=== PATIENT | male | born 1960 | race Caucasian/White ===

== ENCOUNTER 2023-09-20 09:23 | Outpatient (CLI) | payer MEDICARE, SELFPAY ==
--- NOTE | ~2023-09-20 | XR_ITS ---
Clinical Indication: Chest pain PA and lateral views of the chest: Comparison: 12/15/2014 Findings: The lungs are clear, without evidence of focal consolidation or pleural effusion. Cardiome diastinal silhouette is within normal limits. Bones and soft tissues are unremarkable. Impression: Normal chest. Reviewed, dictated and finalized at location . Impression: Normal chest.
[2023-09-20 10:17] LABS: Basophils Absolute Auto 0.03 K/mm3 (0.00-0.10); Basophils Percent Auto 0.7 % (0.0-1.0); Eosinophils Absolute Auto 0.16 K/mm3 (0.02-0.50); Eosinophils Percent Auto 3.6 % (1.0-6.0); Hematocrit 43.8 % (37.0-46.0); Hemoglobin 15.1 g/dL (12.4-15.3); Immature Granulocyte Absolute 0.01 K/mm3 (0.00-0.00); Immature Granulocyte Percent A 0.2 % (0.0-0.0); Lymphocytes Absolute Auto 0.96 K/mm3 (1.10-4.50); Lymphocytes Percent Auto 21.8 % (18.0-42.0); Mean Corpuscular HGB Conc 34.5 g/dL (32-36); Mean Corpuscular Hemoglobin 31.5 pg (27.0-31.0); Mean Corpuscular Volume 91.3 fL (78.0-102.0); Mean Platelet Volume 10.1 fl (8.7-11.0); Monocytes Absolute Auto 0.25 K/mm3 (0.10-0.90); Monocytes Percent Auto 5.7 % (2.0-11.0); Neutrophils Absolute Auto 2.99 K/mm3 (1.70-7.20); Platelet Count Result 206 K/mm3 (150-420); Red Cell Distribution Width 12.4 % (11.6-14.4); White Blood Count 4.4 K/mm3 (4.8-10.8)
[2023-09-20 10:44] LABS: Alanine Aminotransferase 101 U/L (16-63); Albumin Level 3.8 g/dL (3.4-5.0); Alkaline Phosphatase 88 U/L (46-116); Anion Gap 12 mmol/L (4-12); Aspartate Amino Transferase 48 U/L (15-37); Bilirubin,Total 0.8 mg/dL (0.00-1.00); Blood Urea Nitrogen 18 mg/dL (7-18); Calcium 8.6 mg/dL (8.5-10.1); Carbon Dioxide 23 mmol/L (21-32); Chloride 104 mmol/L (98-108); Creatine Kinase 65 U/L (39-308); Estimated Glomerular Filt Rate > 60; Glucose 156 mg/dL (70-99); Osmolality Calculated 292 mOsm/kg (285-295); Potassium 4.1 mmol/L (3.5-5.1); Sodium 139 mmol/L (136-145)
[2023-09-20 10:53] LABS: Creatine Kinase MB < 0.50 ng/mL (0.00-5.00); Troponin I < 4.0 ng/L (0.00-60.4)
[2023-09-20 12:37] LABS: Hemoglobin A1C 5.3 % (<5.7)
== END 2023-09-20 09:24 | disposition home or self-care (01) ==
LOC: CHSLAB 09:27
PROVIDERS: PCP Family Medicine; Visit Provider Family Medicine
DX: R73.01 Impaired fasting glucose (principal); Z13.220 Encounter for screening for lipoid disorders; R07.89 Other chest pain; R79.9 Abnormal finding of blood chemistry, unspecified
CPT/HCPCS: 36415; 71046; 80053; 82550; 82553; 83036; 84484; 85025

== ENCOUNTER 2023-09-21 07:25 | Outpatient (CLI) | payer MEDICARE, SELFPAY ==
[2023-09-21 08:27] LABS: Cholesterol 199 mg/dL (0-200); HDL Direct 53 mg/dL (40-60); LDL Cholesterol Calculated 133 mg/dL (<130); Triglycerides 67 mg/dL (0-150)
== END 2023-09-21 07:26 | disposition home or self-care (01) ==
LOC: CHSLAB 07:27
PROVIDERS: PCP Family Medicine; Visit Provider Family Medicine
DX: Z13.220 Encounter for screening for lipoid disorders (principal); Z13.6 Encounter for screening for cardiovascular disorders
CPT/HCPCS: 36415; 80061

== ENCOUNTER 2024-12-12 01:58 | Day surgery (SDC) | payer MEDICARE, SELFPAY ==
[2024-11-26 14:40] VITALS: BMI 28.7
--- OUTSIDE RECORDS SUMMARY | 2024-12-12 02:01 | XMS_ITS | Clinical Summary ---
Author Organization [facility] Address [address] [place] [address] Phone Care Team Providers Care Conservation Assistant Name Role Phone Lewis Ramirez MD Primary Care Provider Allergies No known active allergies Medications Loratadine 10 MG Capsule Take by mouth. Active Family History Medical History Relation Name Comments Cancer Father esophgeal Asthma Mother Emphysema Mother Lung Cancer Mother ??? 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 Not on file Not on file Not on lesly e Last Filed Vital Signs Vital Sign Reading Time Taken Comments Blood Pressure 119/69 02/13/2019 6:40 AM CDT Pulse 70 02/13/2019 6:40 AM CDT Temperature 36 C (96.8 F) 02/13/2019 6:40 AM CDT Respiratory Rate 14 02/13/2019 6:40 AM CDT Oxygen Saturation 97% 02/13/2019 6:40 AM CDT Inhaled Oxygen Concentration - - Weight 90.7 kg (200 lb) 02/13/2019 5:24 AM CDT Height 176.5 cm (5' 9.5) 02/13/2019 5:24 AM CDT Body Mass Index 29.11 02/13/2019 5:24 AM CDT Plan of Treatment Health Maintenance Due Date Last Done Comments Hepatitis C Virus (HCV) Screening 1960 TdaP Immunization 1960 Cologuard 2003 Immunochemical Fecal Occult Blood 2003 Pneumococcal Immunization (5 0+ years) (1 of 1 - PCV) 2008 Zoster Immunization (1 of 2) 2008 SARS-COV-2 Immunization (1 - 2023- season) 2024 Colonoscopy 02/14/2024 02/13/2019, 08/05/2015 Colorectal Cancer Screening 02/14/2024 Influenza Immunization (#1) 2024 Respiratory Syncytial Virus (RSV) Immunization (Adult) (1 - 1-dose 75+ series) 2033 Hepatitis B Immunization Aged Out No longer eligible based on patient's age to complete this topic Human Papillomavirus (HPV) Immunization Aged Out No longer eligible b ased on patient's age to complete this topic Meningococcal Immunization (ACWY) Aged Out No longer eligible b ased on patient's age to complete this topic Rotavirus Immunization Aged Out No lo nger eligible based on patient's age to complete this topic Insurance [facility] Care Teams Conservation Assistant Relationship Specialty Start Date End Date Lewis Ramirez MD [address] [place] [address] PCP - General Pediatrics 02/12/19
[2024-12-12 10:06] VITALS: BP 133/72; PULSE 77; RESP 20; TEMP 36.3; O2SAT 97
[2024-12-12] MEDS: LACTATED RINGERS 1,000 ML 150 ML IV CONT (10:16)
--- NOTE | 2024-12-12 10:19 | P.PNAN_ITS ---
Anes - Initial Pre Proc Eval Procedure: Operation Date: 12/12/24 11:30 Proposed Procedures p Screening Colonoscopy - Terrence Ricketts MD Date/Time: 12/12/24 10:19 Surgeon: Terrence Ricketts MD Pre Op Diagnosis: Screening Patient Data Age: 64 Gender: M Height: 1.78 m Weight: 96.4 kg Last Vital Signs Temp 36.3 C L 12/12/24 10:06 Pulse 77 12/12/24 10:06 Resp 20 12/12/24 10:06 BP 133/72 12/12/24 10:06 Pulse Ox 97 12/12/24 10:06 O2 Del Method Room Air 12/12/24 10:06 Allergies Allergy/AdvReac Type Severity Reaction Status Date / Time No Known Allergies Allergy Verified 12/12/24 10:05 Home Medications ?Medication ?Instructions ?Recorded ?Confirmed ?Type No Home Medications 06/26/23 11/26/24 History Patient hx anesthesia problems: none Family hx anesthesia problems: none Results Review: All pre-operative results and documents have been reviewed as part of the pre- operative evaluation. [facility] Family History Family History Father Esophageal cancer Mother Asthma Depression Social History Social History Smoking status: Never smoker Alcohol intake: current Drinks per week: 10 Substance use: never Substance use type: does not use Do You Feel Safe in your Home?: Yes Lack of Transportation: No Lack of Food: Never True Current Housing: I Have Housing Concerned About Future Housing: No Difficulty Paying Gas/Electric Bills: No Difficulty Paying for Meds: No Currently Unemployed: No Education: High School Diploma/GED Difficulty w/ Childcare or Family Care: No Living arrangements: with family Spiritual care concerns: No Anes - Eval Final PreProcedure Day of Procedure 12/12/24 10:19 Patient weight: obese Heart: regular rate and rhythm Lungs: clear to auscultation Airway: Mallampati scale class II Neurological: alert and oriented Last oral intake: >/= 8 hours ASA classification: II Emergent: no Anesthetic plan: proceed Anesthesia type and monitoring: general GIVS and standard monitoring Results Review: All pre-operative results and documents have been reviewed as part of the pre- operative evaluation. Informed Consent: The patient's anesthetic plan and its attendant risks and benefits were discussed with the patient/family/POA. Questions were solicited and answers provided to the satisfaction of the patient/family/POA.
--- NOTE | 2024-12-12 10:25 | PM.IMHP ---
H&P: HPI History of Present Illness Date/Time: 12/12/24 10:25 Chief Complaint: History of colon polyps Narrative: The patient has a history of colonic polyps, the last colonoscopy was 5 years ago not finding polyps, however On a previous colonoscopy he had adenomas. there is no family history of colorectal cancer or polyps. Review of Systems Review of Systems: All systems reviewed & are unremarkable except as noted in HPI and below PMFSH Family History Family History Father Esophageal cancer Mother Asthma Depression Social History Social History Smoking status: Never smoker Alcohol intake: current Drinks per week: 10 Substance use: never Substance use type: does not use Do You Feel Safe in your Home?: Yes Lack of Transportation: No Lack of Food: Never True Current Housing: I Have Housing Concerned About Future Housing: No Difficulty Paying Gas/Electric Bills: No Difficulty Paying for Meds: No Currently Unemployed: No Education: High School Diploma/GED Difficulty w/ Childcare or Family Care: No Living arrangements: with family Spiritual care concerns: No Meds Home Medications and Allergies Home Medications ?Medication ?Instructions ?Recorded ?Confirmed ?Type No Home Medications 06/26/23 11/26/24 History Allergies Allergy/AdvReac Type Severity Reaction Status Date / Time No Known Allergies Allergy Verified 12/12/24 10:05 Vital Signs Vital Signs - 24 hr 12/12/24 10:06 Temperature 97.3 F L Pulse Rate 77 Respiratory Rate 20 Blood Pressure 133/72 Pulse Oximetry 97 Oxygen Delivery Room Air Exam Const: General: cooperative and healthy appearing Resp: Effort & Inspection: normal respiratory effort and able to speak in complete sentences Auscultation: clear to auscultation bilaterally Cardio: Rate: regular rate Rhythm: regular rhythm GI: Inspection: normal to inspection GI Palp: No No hepatosplenomegaly present Auscultation: normal bowel sounds Rectal Exam: deferred Skin: General skin exam: normal color Psych: Appearance: grossly normal Mental Status: mental status grossly normal Assessment and Plan Assessment and plan (1) History of colonic polyps: Code(s): Z86.0100 - Personal history of colon polyps, unspecified Status: Acute Assessment and Plan: The patient is deemed a good candidate for the procedure. Consent signed. Will proceed.
[2024-12-12] MEDS: SIMETHICONE ORAL SUSPENSION 20 MG/0.3 ML 30 ML BOTTLE 0.6 ML IRRIGATION (10:39)
[2024-12-12 10:50] VITALS: BP 122/67; PULSE 72; RESP 18; O2SAT 98
[2024-12-12 11:00] VITALS: BP 129/84; PULSE 68; RESP 18; O2SAT 98
[2024-12-12 11:10] VITALS: BP 121/70; PULSE 74; RESP 16; O2SAT 100
== END 2024-12-12 11:23 | disposition home or self-care (01) ==
PROVIDERS: PCP Family Medicine; Referring Provider Family Medicine; Visit Provider Internal Medicine Gastroenterology
PROC: 0DJD8ZZ Inspection of Lower Intestinal Tract, Via Natural or Artificial Opening Endoscopic (ICD-10-PCS; CPT 45378; principal; 2024-12-12 11:30)
DX: Z12.11 Encounter for screening for malignant neoplasm of colon (principal); K64.8 Other hemorrhoids; K57.30 Diverticulosis of large intestine without perforation or abscess without bleeding; E66.9 Obesity, unspecified; Z68.30 Body mass index [BMI] 30.0-30.9, adult; Z86.0100 Personal history of colon polyps, unspecified; Z80.0 Family history of malignant neoplasm of digestive organs
CPT/HCPCS: G0105; J2704; J7120